=== PATIENT | male | born 1990 | race Hispanic/Latino ===

== ENCOUNTER 2016-11-24 20:51 | Inpatient (IN) | payer OTHER ==
[2016-11-24 21:43] LABS: Hematocrit 43.9 % (35.5-45.6); Hemoglobin 14.6 gm/dl (11.8-15.2); Mean Corpuscular HGB Conc 33 % (32-34); Mean Corpuscular Hemoglobin 30 pg (28-32); Mean Corpuscular Volume 91 fl (84-94); Platelet Count 273 K/mm3 (140-440); Red Blood Count 4.81 M/mm3 (3.65-5.03); Red Cell Distribution Width 14.3 % (13.2-15.2)
[2016-11-24 21:44] LABS: White Blood Count 28.6 K/mm3 (4.5-11.0)
[2016-11-24 22:24] LABS: Albumin/Globulin Ratio 1.9 %; BUN/Creatinine Ratio 8.69; Bilirubin,Total 1.5 mg/dL (0.1-1.2); Calcium 10.3 mg/dL (8.4-10.2); Chloride 96.9 mmol/L (98-107); Potassium 4.8 mmol/L (3.6-5.0); Total Protein 7.6 g/dL (6.3-8.2)
[2016-11-24 22:44] LABS: Anisocytosis 1+; Basophils % (Manual) 0 % (0.0-1.8); Blastocytes % (Manual) 0 %; Diff Status Complete; Eosinophils % (Manual) 0 % (0.0-4.3); Platelet Estimate Consistent w Auto
--- NOTE | 2016-11-24 23:01 | Cat Scan Report ---
FINAL REPORT EXAM: CT HEAD/BRAIN WO CON HISTORY: history of stumbling gait TECHNIQUE: Noncontrast serial axial images from skull base to vertex. PRIORS: None. FINDINGS: There is no mass effect or midline shift. There are no abnormal intra or extra-axial fluid collections. Cortical sulci and lateral ventricles are within normal limits for size and configuration. Basilar cisterns are patent. No acute intracranial hemorrhage is identified. Visualized paranasal sinuses and mastoid air cells are well aerated. No acute osseous abnormality is identified. Dental caries are noted. IMPRESSION: 1. No abnormal mass or acute intracranial hemorrhage is identified. 2. The patient can be further assessed with MRI with diffusion-weighted imaging if indicated. 3. Dental caries are noted.
[2016-11-25] MEDS ORDERED: VALIUM IV ONE (00:23)
[2016-11-25] MEDS ORDERED: LACTATED RINGERS 1,000 ML IV ONE ×2 (00:23→00:24)
[2016-11-25] MEDS ORDERED: SODIUM BICARBONATE IV ONE (00:24)
--- NOTE | 2016-11-25 00:25 | Emergency Department Report ---
ED General Adult HPI - General Chief complaint: Seizure Stated complaint: MH EVAL/DRUG INTAKE/MUSCLE PAIN Time Seen by Provider: 11/25/16 00:19 Source: patient, family, RN notes reviewed Mode of arrival: Ambulatory Limitations: Other (patient is methamphetamine intoxicated. He is a poor historian) - History of Present Illness Initial comments: This is a 26-year-old male. The patient is previously unknown to me. The patient presents to the ER complaining of body aches, nausea, vomiting, denying diarrhea. Patient did admit to being a methamphetamine user. Patient thinks he may have had a seizure but is not certain. He is not homicidal or suicidal. He is not expressing hallucinations. He denies access to guns and firearms. In the ER, the patient is noted to be walking around without difficulty. He mumbles and is rambling. He is found to have acute renal insufficiency, and mild rhabdomyolosis At this point in time, The patient does not require 1013. The patient's physical examination is nonfocal, there are no fevers, there is no neck stiffness, there is no leukocytosis. Given rhabdomyolysis, acute renal insufficiency, the case is presented to the Hospital physician, Dr. Pickens, who accepts the patient to her service. Patient is intoxicated, and is unable to describe exacerbating or relieving factors. He is unable to describe the quality of nature of his symptoms. -: unknown Radiation: other (per hpi) Quality: other (per hpi) Consistency: other (per hpi) Improves with: other (per hpi) Worsens with: other (per hpi) Associated Symptoms: weakness - Related Data Home Medications Medication Instructions Recorded Confirmed Last Taken No Known Home Medications [No 11/25/16 11/25/16 Unknown Reported Home Medications] Allergies Allergy/AdvReac Type Severity Reaction Status Date / Time No Known Allergies Allergy Unverified 11/24/16 21:19 ED Review of Systems ROS: Stated complaint: MH EVAL/DRUG INTAKE/MUSCLE PAIN Other details as noted in HPI ED Past Medical Hx - Past Medical History Previous Medical History?: No - Surgical History Past Surgical History?: No - Social History Smoking Status: Never Smoker Substance Use Type: Alcohol - Medications Home Medications: Home Medications Medication Instructions Recorded Confirmed Last Taken Type No Known Home Medications [No 11/25/16 11/25/16 Unknown History Reported Home Medications] ED Physical Exam - General Limitations: Other (intoxicated) General appearance: alert, in no apparent distress - Head Head exam: Present: atraumatic, normocephalic - Eye Eye exam: Present: normal appearance, EOMI - ENT ENT exam: Present: normal exam, normal orophraynx, mucous membranes moist, normal external ear exam - Neck Neck exam: Present: normal inspection, full ROM. Absent: tenderness, meningismus - Respiratory Respiratory exam: Present: normal lung sounds bilaterally. Absent: respiratory distress, wheezes, rales, rhonchi, stridor, chest wall tenderness, accessory muscle use, decreased breath sounds, prolonged expiratory - Cardiovascular Cardiovascular Exam: Present: regular rate, normal rhythm, normal heart sounds. Absent: bradycardia, tachycardia, irregular rhythm, systolic murmur, diastolic murmur, rubs, gallop - GI/Abdominal GI/Abdominal exam: Present: soft, normal bowel sounds. Absent: distended, tenderness, guarding, rebound, rigid, pulsatile mass - Rectal Rectal exam: Present: deferred - Extremities Exam Extremities exam: Present: normal inspection, normal capillary refill, other ( the compartments are soft. 2+ pulses noted in the bilateral upper and lower extremities). Absent: tenderness, pedal edema, joint swelling, calf tenderness - Back Exam Back exam: Present: normal inspection, full ROM. Absent: tenderness, CVA tenderness (R), CVA tenderness (L), muscle spasm, paraspinal tenderness, vertebral tenderness - Neurological Exam Neurological exam: Present: alert, oriented X3, normal gait, other (Extraocular movements intact. Tongue midline. No facial droop. Facial sensation intact to light touch in the V1, V2, V3 distribution bilaterally. 5 and 5 strength in 4 extremities.. Sensation is intact to light touch in 4 extremities.). Absent : motor sensory deficit - Psychiatric Psychiatric exam: Present: anxious. Absent: homicidal ideation, suicidal ideation - Skin Skin exam: Present: warm, rash ED Course Vital Signs 11/24/16 21:10 Temperature 98.8 F Pulse Rate 97 H Blood Pressure 130/83 O2 Sat by Pulse 97 Oximetry ED Medical Decision Making - Lab Data Result diagrams: 11/24/16 21:24 11/24/16 21:24 Vital Signs 11/24/16 11/25/16 11/25/16 21:10 00:35 02:00 Temperature 98.8 F Pulse Rate 97 H 86 79 Respiratory 18 18 Rate Blood Pressure 130/83 Blood Pressure 111/46 101/55 [Left] O2 Sat by Pulse 97 99 98 Oximetry Lab Results 11/24/16 11/24/16 11/24/16 Range/Units 21:24 21:24 21:24 WBC 28.6 H (4.5-11.0) K/mm3 RBC 4.81 (3.65-5.03) M/mm3 Hgb 14.6 (11.8-15.2) gm/dl Hct 43.9 (35.5-45.6) % MCV 91 (84-94) fl MCH 30 (28-32) pg MCHC 33 (32-34) % RDW 14.3 (13.2-15.2) % Plt Count 273 (140-440) K/mm3 Add Manual Diff Complete Total Counted 200 Seg Neuts % (Manual) 78.0 H (40.0-70.0) % Band Neutrophils % 1.0 % Lymphocytes % (Manual) 13.0 L (13.4-35.0) % Reactive Lymphs % (Man) 0 % Monocytes % (Manual) 8.0 H (0.0-7.3) % Eosinophils % (Manual) 0 (0.0-4.3) % Basophils % (Manual) 0 (0.0-1.8) % Metamyelocytes % 0 % Myelocytes % 0 % Promyelocytes % 0 % Blast Cells % 0 % Nucleated RBC % Not Reportable Seg Neutrophils # Man 22.3 H (1.8-7.7) K/mm3 Band Neutrophils # 0.3 K/mm3 Lymphocytes # (Manual) 3.7 (1.2-5.4) K/mm3 Abs React Lymphs (Man) 0.0 K/mm3 Monocytes # (Manual) 2.3 H (0.0-0.8) K/mm3 Eosinophils # (Manual) 0.0 (0.0-0.4) K/mm3 Basophils # (Manual) 0.0 (0.0-0.1) K/mm3 Metamyelocytes # 0.0 K/mm3 Myelocytes # 0.0 K/mm3 Promyelocytes # 0.0 K/mm3 Blast Cells # 0.0 K/mm3 WBC Morphology Not Reportable Hypersegmented Neuts Not Reportable Hyposegmented Neuts Not Reportable Hypogranular Neuts Not Reportable Smudge Cells Not Reportable Toxic Granulation Not Reportable Toxic Vacuolation Not Reportable Dohle Bodies Not Reportable Pelger-Huet Anomaly Not Reportable Caron Rods Not Reportable Platelet Estimate Consistent w auto Clumped Platelets Not Reportable Plt Clumps, EDTA Not Reportable Large Platelets Not Reportable Giant Platelets Not Reportable Platelet Satelliting Not Reportable Plt Morphology Comment Not Reportable RBC Morphology Not Reportable Dimorphic RBCs Not Reportable Polychromasia Not Reportable Hypochromasia Not Reportable Poikilocytosis Not Reportable Anisocytosis 1+ Microcytosis Not Reportable Macrocytosis Not Reportable Spherocytes Not Reportable Pappenheimer Bodies Not Reportable Sickle Cells Not Reportable Target Cells Not Reportable Tear Drop Cells Not Reportable Ovalocytes Not Reportable Helmet Cells Not Reportable [place] Bodies Not Reportable [place] Rings Not Reportable [place] Cells Not Reportable Bite Cells Not Reportable Crenated Cell Not Reportable Elliptocytes Not Reportable Acanthocytes (Spur) Not Reportable Rouleaux Not Reportable Hemoglobin C Crystals Not Reportable Schistocytes Not Reportable Malaria parasites Not Reportable Rinku Bodies Not Reportable Hem Pathologist Commnt No PT (12.2-14.9) Sec. INR (0.87-1.13) Sodium 140 (137-145) mmol/L Potassium 4.8 (3.6-5.0) mmol/L Chloride 96.9 L (98-107) mmol/L Carbon Dioxide 23 (22-30) mmol/L Anion Gap 25 mmol/L BUN 20 (9-20) mg/dL Creatinine 2.3 H (0.8-1.5) mg/dL Estimated GFR 34 ml/min BUN/Creatinine Ratio 8.69 % Glucose 76 (75-100) mg/dL Lactic Acid (0.7-2.0) mmol/L Calcium 10.3 H (8.4-10.2) mg/dL Total Bilirubin 1.50 H (0.1-1.2) mg/dL AST 39 (5-40) units/L ALT 17 (7-56) units/L Alkaline Phosphatase 71 (35-129) units/L Total Creatine Kinase (55-170) units/L Total Protein 7.6 (6.3-8.2) g/dL Albumin 5.0 (3.9-5) g/dL Albumin/Globulin Ratio 1.9 % Salicylates (2.8-20.0) mg/dL Acetaminophen (10.0-30.0) ug/mL Plasma/Serum Alcohol < 0.01 (0-0.07) gm% 11/24/16 11/24/16 11/24/16 Range/Units 21:24 21:24 21:24 WBC (4.5-11.0) K/mm3 RBC (3.65-5.03) M/mm3 Hgb (11.8-15.2) gm/dl Hct (35.5-45.6) % MCV (84-94) fl MCH (28-32) pg MCHC (32-34) % RDW (13.2-15.2) % Plt Count (140-440) K/mm3 Add Manual Diff Total Counted Seg Neuts % (Manual) (40.0-70.0) % Band Neutrophils % % Lymphocytes % (Manual) (13.4-35.0) % Reactive Lymphs % (Man) % Monocytes % (Manual) (0.0-7.3) % Eosinophils % (Manual) (0.0-4.3) % Basophils % (Manual) (0.0-1.8) % Metamyelocytes % % Myelocytes % % Promyelocytes % % Blast Cells % % Nucleated RBC % Seg Neutrophils # Man (1.8-7.7) K/mm3 Band Neutrophils # K/mm3 Lymphocytes # (Manual) (1.2-5.4) K/mm3 Abs React Lymphs (Man) K/mm3 Monocytes # (Manual) (0.0-0.8) K/mm3 Eosinophils # (Manual) (0.0-0.4) K/mm3 Basophils # (Manual) (0.0-0.1) K/mm3 Metamyelocytes # K/mm3 Myelocytes # K/mm3 Promyelocytes # K/mm3 Blast Cells # K/mm3 WBC Morphology Hypersegmented Neuts Hyposegmented Neuts Hypogranular Neuts Smudge Cells Toxic Granulation Toxic Vacuolation Dohle Bodies Pelger-Huet Anomaly Caron Rods Platelet Estimate Clumped Platelets Plt Clumps, EDTA Large Platelets Giant Platelets Platelet Satelliting Plt Morphology Comment RBC Morphology Dimorphic RBCs Polychromasia Hypochromasia Poikilocytosis Anisocytosis Microcytosis Macrocytosis Spherocytes Pappenheimer Bodies Sickle Cells Target Cells Tear Drop Cells Ovalocytes Helmet Cells Galindo-[place] Bodies [place] Rings [place] Cells Bite Cells Crenated Cell Elliptocytes Acanthocytes (Spur) Rouleaux Hemoglobin C Crystals Schistocytes Malaria parasites Rinku Bodies Hem Pathologist Commnt PT (12.2-14.9) Sec. INR (0.87-1.13) Sodium (137-145) mmol/L Potassium (3.6-5.0) mmol/L Chloride (98-107) mmol/L Carbon Dioxide (22-30) mmol/L Anion Gap mmol/L BUN (9-20) mg/dL Creatinine (0.8-1.5) mg/dL Estimated GFR ml/min BUN/Creatinine Ratio % Glucose (75-100) mg/dL Lactic Acid (0.7-2.0) mmol/L Calcium (8.4-10.2) mg/dL Total Bilirubin (0.1-1.2) mg/dL AST (5-40) units/L ALT (7-56) units/L Alkaline Phosphatase (35-129) units/L Total Creatine Kinase 1341 H (55-170) units/L Total Protein (6.3-8.2) g/dL Albumin (3.9-5) g/dL Albumin/Globulin Ratio % Salicylates < 0.3 L (2.8-20.0) mg/dL Acetaminophen < 15.0 (10.0-30.0) ug/mL Plasma/Serum Alcohol (0-0.07) gm% 11/25/16 11/25/16 Range/Units 00:29 00:29 WBC (4.5-11.0) K/mm3 RBC (3.65-5.03) M/mm3 Hgb (11.8-15.2) gm/dl Hct (35.5-45.6) % MCV (84-94) fl MCH (28-32) pg MCHC (32-34) % RDW (13.2-15.2) % Plt Count (140-440) K/mm3 Add Manual Diff Total Counted Seg Neuts % (Manual) (40.0-70.0) % Band Neutrophils % % Lymphocytes % (Manual) (13.4-35.0) % Reactive Lymphs % (Man) % Monocytes % (Manual) (0.0-7.3) % Eosinophils % (Manual) (0.0-4.3) % Basophils % (Manual) (0.0-1.8) % Metamyelocytes % % Myelocytes % % Promyelocytes % % Blast Cells % % Nucleated RBC % Seg Neutrophils # Man (1.8-7.7) K/mm3 Band Neutrophils # K/mm3 Lymphocytes # (Manual) (1.2-5.4) K/mm3 Abs React Lymphs (Man) K/mm3 Monocytes # (Manual) (0.0-0.8) K/mm3 Eosinophils # (Manual) (0.0-0.4) K/mm3 Basophils # (Manual) (0.0-0.1) K/mm3 Metamyelocytes # K/mm3 Myelocytes # K/mm3 Promyelocytes # K/mm3 Blast Cells # K/mm3 WBC Morphology Hypersegmented Neuts Hyposegmented Neuts Hypogranular Neuts Smudge Cells Toxic Granulation Toxic Vacuolation Dohle Bodies Pelger-Huet Anomaly Caron Rods Platelet Estimate Clumped Platelets Plt Clumps, EDTA Large Platelets Giant Platelets Platelet Satelliting Plt Morphology Comment RBC Morphology Dimorphic RBCs Polychromasia Hypochromasia Poikilocytosis Anisocytosis Microcytosis Macrocytosis Spherocytes Pappenheimer Bodies Sickle Cells Target Cells Tear Drop Cells Ovalocytes Helmet Cells Galindo-[place] Bodies [place] Rings Myles Cells Bite Cells Crenated Cell Elliptocytes Acanthocytes (Spur) Rouleaux Hemoglobin C Crystals Schistocytes Malaria parasites Rinku Bodies Hem Pathologist Commnt PT 14.5 (12.2-14.9) Sec. INR 1.14 H (0.87-1.13) Sodium (137-145) mmol/L Potassium (3.6-5.0) mmol/L Chloride (98-107) mmol/L Carbon Dioxide (22-30) mmol/L Anion Gap mmol/L BUN (9-20) mg/dL Creatinine (0.8-1.5) mg/dL Estimated GFR ml/min BUN/Creatinine Ratio % Glucose (75-100) mg/dL Lactic Acid 1.00 (0.7-2.0) mmol/L Calcium (8.4-10.2) mg/dL Total Bilirubin (0.1-1.2) mg/dL AST (5-40) units/L ALT (7-56) units/L Alkaline Phosphatase (35-129) units/L Total Creatine Kinase (55-170) units/L Total Protein (6.3-8.2) g/dL Albumin (3.9-5) g/dL Albumin/Globulin Ratio % Salicylates (2.8-20.0) mg/dL Acetaminophen (10.0-30.0) ug/mL Plasma/Serum Alcohol (0-0.07) gm% - EKG Data -: EKG Interpreted by Pr EKG shows normal: sinus rhythm, axis, intervals, QRS complexes, ST-T waves - EKG Data When compared to previous EKG there are: previous EKG unavailable - Radiology Data Radiology results: report reviewed, image reviewed Noncontrast CT scan of the brain is negative - Medical Decision Making Differential diagnosis: Dehydration, vasomotor nephropathy, acute renal insufficiency, methamphetamine toxicity Assessment and plan: 26-year-old male who is clinically intoxicated, with leukocytosis, however no fever. There is no neck pain or neck stiffness. There are no meningeal signs. Patient's mentation is most likely toxic metabolic. He does not require 1013 at this time. He will be given Valium for symptom control, and 2 L of lactated Ringer's. He requires admission for his electrolyte/renal derangement. Critical care attestation.: If time is entered above; I have spent that time in minutes in the direct care of this critically ill patient, excluding procedure time. ED Disposition Clinical Impression: Renal failure, Rhabdomyolysis, Methamphetamine abuse Disposition: OP ADMITTED IP TO THIS HOSP Is pt being admited?: Yes Condition: Good
[2016-11-25] MEDS ORDERED: ZOFRAN IV PRN (00:59)
[2016-11-25] MEDS ORDERED: DULCOLAX PR PRN (00:59)
[2016-11-25] MEDS ORDERED: TYLENOL PO PRN (00:59)
[2016-11-25] MEDS ORDERED: NACL 0.9% 1000 ML 1,000 ML IV SCH (01:00)
--- NOTE | 2016-11-25 01:02 | History and Physical Report ---
History of Present Illness Date of examination: 11/25/16 History of present illness: 26-year-old man with a history of methamphetamine abuse came to the emergency room with complaints of muscle cramps. Patient was agitated in the emergency room, and was given IV Valium, he is now sedated, review of system is unobtainable PAST SURGICAL HISTORY: Unknown SOCIAL HISTORY: Methamphetamine abuse, unknown alcohol, tobacco FAMILY HISTORY: Unknown Medications and Allergies Allergies Allergy/AdvReac Type Severity Reaction Status Date / Time No Known Allergies Allergy Unverified 11/24/16 21:19 Home Medications Medication Instructions Recorded Confirmed Last Taken Type No Known Home Medications [No 11/25/16 11/25/16 Unknown History Reported Home Medications] Active Meds: Active Medications Lactated Ringer's (Lactated Ringers) 1,000 mls @ 999 mls/hr IV BOLUS ONE Stop: 11/25/16 01:23 Last Admin: 11/25/16 00:45 Dose: 999 mls/hr Lactated Ringer's (Lactated Ringers) 1,000 mls @ 999 mls/hr IV BOLUS ONE Stop: 11/25/16 01:24 Last Admin: 11/25/16 00:45 Dose: 999 mls/hr Exam - Physical Exam Narrative exam: Gen. appearance: Patient lying in bed, no apparent distress HEENT: Normocephalic, atraumatic, pupils equally round and reactive to light, unable to do extraocular movement, and no sclericterus,. No JVD or thyromegaly or nodule,neck supple, no carotid bruit ,mucous membranes moist, no exudate or erythema Heart: S1, S2, regular rate and rhythm Lungs: Clear to auscultation bilaterally, breathing comfortable Abdomen: Positive bowel sounds, soft, nondistended, no organomegaly Extremity: No edema, cyanosis, clubbing Skin: No rash, nodules, warm, dry Neuro: Sedated - Constitutional Vitals: Temp Pulse Resp BP Pulse Ox 98.8 F 97 H 130/83 97 11/24/16 21:10 11/24/16 21:10 11/24/16 21:10 11/24/16 21:10 Results - Labs CBC & Chem 7: 11/24/16 21:24 11/24/16 21:24 Labs: Abnormal lab results 11/24/16 11/24/16 11/24/16 Range/Units 21:24 21:24 21:24 WBC 28.6 H (4.5-11.0) K/mm3 Seg Neuts % (Manual) 78.0 H (40.0-70.0) % Lymphocytes % (Manual) 13.0 L (13.4-35.0) % Monocytes % (Manual) 8.0 H (0.0-7.3) % Seg Neutrophils # Man 22.3 H (1.8-7.7) K/mm3 Monocytes # (Manual) 2.3 H (0.0-0.8) K/mm3 Chloride 96.9 L (98-107) mmol/L Creatinine 2.3 H (0.8-1.5) mg/dL Calcium 10.3 H (8.4-10.2) mg/dL Total Bilirubin 1.50 H (0.1-1.2) mg/dL Total Creatine Kinase 1341 H (55-170) units/L Salicylates (2.8-20.0) mg/dL 11/24/16 Range/Units 21:24 WBC (4.5-11.0) K/mm3 Seg Neuts % (Manual) (40.0-70.0) % Lymphocytes % (Manual) (13.4-35.0) % Monocytes % (Manual) (0.0-7.3) % Seg Neutrophils # Man (1.8-7.7) K/mm3 Monocytes # (Manual) (0.0-0.8) K/mm3 Chloride (98-107) mmol/L Creatinine (0.8-1.5) mg/dL Calcium (8.4-10.2) mg/dL Total Bilirubin (0.1-1.2) mg/dL Total Creatine Kinase (55-170) units/L Salicylates < 0.3 L (2.8-20.0) mg/dL - Imaging and Cardiology CT Scan - head: report reviewed Assessment and Plan Acute renal failure SIRS Rhabdomyolysis Substance abuse Start IV fluids, obtain ultrasound of the kidneys Start empiric IV Zosyn, follow blood cultures Start DVT prophylaxis
[2016-11-25 01:12] LABS: INR 1.14 (0.87-1.13)
--- NOTE | 2016-11-25 03:50 | Ultrasound Report ---
FINAL REPORT EXAM: US RENAL BILAT HISTORY: ARF COMPARISON: None available. TECHNIQUE: Several real-time grayscale and color Doppler images were obtained. FINDINGS: Right kidney measures 9.8 x 5.3 x 4.9 centimeters. Cortex measures 1.7 centimeters. Left kidney measures 10.5 x 5.3 x 5.5 centimeters. Cortex measures 1.9 centimeters. There is vascular flow to the bilateral kidneys. No gross focal renal lesion or hydronephrosis. Punctate nonobstructive renal calculi could be obscured by renal sinus fat. Visualize urinary bladder is grossly unremarkable. IMPRESSION: No gross focal renal lesion or hydronephrosis. Visualized urinary bladder is grossly unremarkable.
[2016-11-25] MEDS ORDERED: ZOSYN/NS 4.5GM/100ML 4.5 GM/100 ML VIAL IV SCH (04:10)
--- NOTE | 2016-11-25 04:15 | Admit Criteria Form ---
Admission Criteria Documentation: MUSCULOSKELETAL DISEASE GRG Clinical Indications for Admission to Inpatient Care (Place 'X' for any and all applicable criteria): Hospital admission is needed for appropriate care of the patient because of 1 or more of the following: [ ]I. Fracture, dislocation, or other musculoskeletal injury requiring inpatient care(medical) as indicated by 1 or more of the following(4)(5)(6)(7) [ ]a) Vertebral fracture requiring observation for instability or neurologic compromise (8) [ ]b) Compartment syndrome (proven or cannot be ruled out during observation level of care) (9) [ ]c) Limb-threatening injury [ ]d) Major injury requiring inpatient stabilization such as traction initiation or external fixation before internal fixation or closure of complex or open fracture [ ]e) Major injury requiring inpatient treatment after emergency or observation level care (as appropriate) [ ]f) Severe pain requiring acute inpatient management [ ]g) Injury with suspicion of abuse or neglect (eg., child, dependent elderly) [ ]II. Newly diagnosed or suspected bone, joint, or orthopedic device infection (e.g., osteomyelitis, septic arthritis) needing 1 or more of the following(1)(2)(3) [ ]a) IV antibiotics that cannot be initiated in other than inpatient setting (e.g., patient too unstable or home infusion not available) [ ]b) Device removal or replacement [ ]c) Bone or soft tissue debridement [ ]d) Joint drainage (drain placement or repetitive aspirations) [ ]III. Severe rheumatologic disease (e.g., systemic lupus erythematosus, rheumatoid arthritis) with complications or comorbidities (Also use Optimal Recovery Care Criteria or General Recovery Criteria as appropriate on the basis of predominant condition), including 1 or more of the following( 10)(11)(12)(13) [ ]a) Severe infection (e.g., MANAGER [employer]ING infection, sepsis) (14) [ ]b) Respiratory complications, including 1 or more of the following : [ ]i) Pleural effusion with respiratory compromise [ ]ii) Pulmonary hypertension with congestive failure [ ]iii) Respiratory failure [ ]iv) Pulmonary hemorrhage (15) [ ]c) Hematologic disease, including 1 or more of the following: [ ]i) Coagulopathy with bleeding [ ]ii) Thrombosis with hypercoagulable state [ ]iii) Thrombotic thrombocytopenic purpura [ ]d) Cerebritis with seizures, psychosis, or other severe abnormalities [ ]e) Vertebral destruction with monitoring needed for cervical myelopathy& possible respiratory compromise [ ]f) Exacerbation that requires inpatient treatment (e.g., intravenous immunosuppression) (16) [ ]g) Acute renal failure [ ]h) Cerebritis with seizures, psychosis, Altered mental status, or other neurologic abnormalities [ ]i) Pericardial effusion with tamponade [ ]j) Vertebral destruction, with monitoring needed for cervical myelopathy and possible respiratory compromise [ ]IV. Severe vasculitis with complications or comorbidities (Also use Optimal Recovery Care Criteria General Recovery Criteria as appropriate on the basis of predominant condition), including 1 or more of the following(11)(12)(17)(18)(19)(20) [ ]a) Exacerbation that requires inpatient treatment (e.g., intravenous immunosuppression) (19)(21) [ ]b) Pulmonary hemorrhage (15) [ ]c) MANAGER [employer]ING vasculitis with seizures, psychosis, Altered mental status that is severe or persistent, or other severe abnormalities (22) [ ]d) Cerebral infarction [ ]e) Gastrointestinal ischemia [ ]f) Gangrene or threatened amputation [ ]g) Renal failure (16) [ ]h) Other significant complications of vasculitis ( eg., tissue or organ ischemia, organ dysfunction ) [ ]V. Severe myopathy as indicated by 1 or more of the following (28)(29) [ ]a) New onset of airway compromise or inability to swallow [ ]b) Respiratory deterioration with observation needed for impending respiratory failure [ ]c) Exacerbation that requires inpatient treatment (e.g., intravenous immunosuppression) [ ]. Severe crystal gout (arthropathy) indicated by 1 or more of the following (23)(24) [ ]a) Severe pain requiring acute inpatient management [ ]b) Exacerbation that requires inpatient treatment (e.g., intravenous treatment) [X ]VII.Rhabdomyolysis and 1 or more of the following (25)(26)(27) [X ]a) Acute renal failure [ ]b) Need for intravenous hydration after emergency or observation level care (as appropriate) [ ]c) Inability to maintain oral hydration [ ]d) Change in mental status [ ]e) Electrolyte abnormality that remains after emergency or observation level care (as appropriate) [ ]VIII Post amputation complication, as indicated by ANY ONE of the following [ ]a) Infection [ ]b) Dehiscence [ ]c) Myodesis failure [ ]IX. Severe pain requiring acute inpatient management due to musculoskeletal condition [ ]X. Musculoskeletal Disease and ALL of the following: [ ]a) Symptom or finding for which emergency and observation care have failed or are not considered appropriate (Use General Criteria: Observation Care as appropriate) [ ]b) Presence of ANY ONE of the following [ ]i) A General Admission Criteria [ ]ii) A Pediatric General Admission Criteria The original [facility] [employer] content created by [facility] [employer] has been revised. The portions of the content which have been revised are identified through the use of italic text or in bold, and [facility] has neither reviewed nor approved the modified material. All other unmodified content is copyright [facility] [employer]. Please see references footnoted in the original [facility] edition 2016 Admission Criteria Met: Yes
[2016-11-25] MEDS: ZOSYN/NS 2.25 GM/50ML 2.25 GM/50 ML BAG IV SCH ×4 (06:49→22:51)
[2016-11-25] MEDS: LOVENOX SUB-Q SCH (11:45)
--- NOTE | 2016-11-25 17:57 | Progress Note ---
Assessment and Plan Assessment and plan: 26-year-old male presents with acute renal failure rhabdomyolysis and leukocytosis secondary to methamphetamine abuse - Patient Problems (1) Methamphetamine abuse Current Visit: Yes Status: Acute Plan to address problem: Patient has been educated and understands the risk and dangers of methamphetamine use including . Patient informed to join NA (2) Renal failure Current Visit: Yes Status: Acute Qualifiers: Renal failure chronicity: R Acute renal failure type: A Chronic kidney disease stage: C Plan to address problem: Acute renal failure secondary to methamphetamine abuse and rhabdo. Aggressive hydration should be ready for discharge tomorrow. We'll recheck renal function failed. She just got here today. (3) Rhabdomyolysis Current Visit: Yes Status: Acute Qualifiers: Rhabdomyolysis type: R Encounter type: E Plan to address problem: Rhabdo secondary to methamphetamine use aggressive IV hydration recheck CPK in the a.m. Patient appears to be stable no evidence of alcohol withdrawal. Should be stable for discharge in a.m. rhabdo resolved. History Interval history: Patient remains encephalopathic somewhat lethargic will awaken momentarily but goes back to sleep. Patient sleeping very hard. Did speak to patient about the reason he has elevated white count the reason he has rhabdomyolysis the reason he has acute renal failure is because of methamphetamine use. Hospitalist Physical - Constitutional Vitals: Temp Pulse Resp BP Pulse Ox 97.9 F 73 18 116/57 98 11/25/16 12:00 11/25/16 12:00 11/25/16 12:00 11/25/16 12:00 11/25/16 12:00 General appearance: Present: no acute distress - EENT Eyes: Present: PERRL, EOM intact ENT: hearing intact, clear oral mucosa, dentition normal - Neck Neck: Present: supple, normal ROM - Respiratory Respiratory effort: normal Respiratory: bilateral: CTA - Cardiovascular Rhythm: regular Heart Sounds: Present: S1 & S2 - Extremities Extremities: pulses intact Extremity abnormal: edema, cyanosis Peripheral Pulses: within normal limits - Abdominal General gastrointestinal: soft, non-tender, non-distended - Psychiatric Psychiatric: other - Neurologic Neurologic: CNII-XII intact, no focal deficits, moves all extremities (drowsy) Results - Labs CBC & Chem 7: 11/24/16 21:24 11/24/16 21:24 Labs: Laboratory Last Values WBC 28.6 K/mm3 (4.5-11.0) H 11/24/16 21:24 RBC 4.81 M/mm3 (3.65-5.03) 11/24/16 21:24 Hgb 14.6 gm/dl (11.8-15.2) 11/24/16 21:24 Hct 43.9 % (35.5-45.6) 11/24/16 21:24 MCV 91 fl (84-94) 11/24/16 21:24 MCH 30 pg (28-32) 11/24/16 21:24 MCHC 33 % (32-34) 11/24/16 21:24 RDW 14.3 % (13.2-15.2) 11/24/16 21:24 Plt Count 273 K/mm3 (140-440) 11/24/16 21:24 Add Manual Diff Complete 11/24/16 21:24 Total Counted 200 11/24/16 21:24 Seg Neuts % (Manual) 78.0 % (40.0-70.0) H 11/24/16 21:24 Band Neutrophils % 1.0 % 11/24/16 21:24 Lymphocytes % (Manual) 13.0 % (13.4-35.0) L 11/24/16 21:24 Reactive Lymphs % (Man) 0 % 11/24/16 21:24 Monocytes % (Manual) 8.0 % (0.0-7.3) H 11/24/16 21:24 Eosinophils % (Manual) 0 % (0.0-4.3) 11/24/16 21:24 Basophils % (Manual) 0 % (0.0-1.8) 11/24/16 21:24 Metamyelocytes % 0 % 11/24/16 21:24 Myelocytes % 0 % 11/24/16 21:24 Promyelocytes % 0 % 11/24/16 21:24 Blast Cells % 0 % 11/24/16 21:24 Nucleated RBC % Not Reportable 11/24/16 21:24 Seg Neutrophils # Man 22.3 K/mm3 (1.8-7.7) H 11/24/16 21:24 Band Neutrophils # 0.3 K/mm3 11/24/16 21:24 Lymphocytes # (Manual) 3.7 K/mm3 (1.2-5.4) 11/24/16 21:24 Abs React Lymphs (Man) 0.0 K/mm3 11/24/16 21:24 Monocytes # (Manual) 2.3 K/mm3 (0.0-0.8) H 11/24/16 21:24 Eosinophils # (Manual) 0.0 K/mm3 (0.0-0.4) 11/24/16 21:24 Basophils # (Manual) 0.0 K/mm3 (0.0-0.1) 11/24/16 21:24 Metamyelocytes # 0.0 K/mm3 11/24/16 21:24 Myelocytes # 0.0 K/mm3 11/24/16 21:24 Promyelocytes # 0.0 K/mm3 11/24/16 21:24 Blast Cells # 0.0 K/mm3 11/24/16 21:24 WBC Morphology Not Reportable 11/24/16 21:24 Hypersegmented Neuts Not Reportable 11/24/16 21:24 Hyposegmented Neuts Not Reportable 11/24/16 21:24 Hypogranular Neuts Not Reportable 11/24/16 21:24 Smudge Cells Not Reportable 11/24/16 21:24 Toxic Granulation Not Reportable 11/24/16 21:24 Toxic Vacuolation Not Reportable 11/24/16 21:24 Dohle Bodies Not Reportable 11/24/16 21:24 Pelger-Huet Anomaly Not Reportable 11/24/16 21:24 Caron Rods Not Reportable 11/24/16 21:24 Platelet Estimate Consistent w auto 11/24/16 21:24 Clumped Platelets Not Reportable 11/24/16 21:24 Plt Clumps, EDTA Not Reportable 11/24/16 21:24 Large Platelets Not Reportable 11/24/16 21:24 Giant Platelets Not Reportable 11/24/16 21:24 Platelet Satelliting Not Reportable 11/24/16 21:24 Plt Morphology Comment Not Reportable 11/24/16 21:24 RBC Morphology Not Reportable 11/24/16 21:24 Dimorphic RBCs Not Reportable 11/24/16 21:24 Polychromasia Not Reportable 11/24/16 21:24 Hypochromasia Not Reportable 11/24/16 21:24 Poikilocytosis Not Reportable 11/24/16 21:24 Anisocytosis 1+ 11/24/16 21:24 Microcytosis Not Reportable 11/24/16 21:24 Macrocytosis Not Reportable 11/24/16 21:24 Spherocytes Not Reportable 11/24/16 21:24 Pappenheimer Bodies Not Reportable 11/24/16 21:24 Sickle Cells Not Reportable 11/24/16 21:24 Target Cells Not Reportable 11/24/16 21:24 Tear Drop Cells Not Reportable 11/24/16 21:24 Ovalocytes Not Reportable 11/24/16 21:24 Helmet Cells Not Reportable 11/24/16 21:24 Galindo-Jagual Bodies Not Reportable 11/24/16 21:24 [place] Rings Not Reportable 11/24/16 21:24 Myles Cells Not Reportable 11/24/16 21:24 Bite Cells Not Reportable 11/24/16 21:24 Crenated Cell Not Reportable 11/24/16 21:24 Elliptocytes Not Reportable 11/24/16 21:24 Acanthocytes (Spur) Not Reportable 11/24/16 21:24 Rouleaux Not Reportable 11/24/16 21:24 Hemoglobin C Crystals Not Reportable 11/24/16 21:24 Schistocytes Not Reportable 11/24/16 21:24 Malaria parasites Not Reportable 11/24/16 21:24 Rinku Bodies Not Reportable 11/24/16 21:24 Hem Pathologist Commnt No 11/24/16 21:24 PT 14.5 Sec. (12.2-14.9) 11/25/16 00:29 INR 1.14 (0.87-1.13) H 11/25/16 00:29 Sodium 140 mmol/L (137-145) 11/24/16 21:24 Potassium 4.8 mmol/L (3.6-5.0) 11/24/16 21:24 Chloride 96.9 mmol/L (98-107) L 11/24/16 21:24 Carbon Dioxide 23 mmol/L (22-30) 11/24/16 21:24 Anion Gap 25 mmol/L 11/24/16 21:24 BUN 20 mg/dL (9-20) 11/24/16 21:24 Creatinine 2.3 mg/dL (0.8-1.5) H 11/24/16 21:24 Estimated GFR 34 ml/min 11/24/16 21:24 BUN/Creatinine Ratio 8.69 % 11/24/16 21:24 Glucose 76 mg/dL (75-100) 11/24/16 21:24 Lactic Acid 1.00 mmol/L (0.7-2.0) 11/25/16 00:29 Calcium 10.3 mg/dL (8.4-10.2) H 11/24/16 21:24 Total Bilirubin 1.50 mg/dL (0.1-1.2) H 11/24/16 21:24 AST 39 units/L (5-40) 11/24/16 21:24 ALT 17 units/L (7-56) 11/24/16 21:24 Alkaline Phosphatase 71 units/L (35-129) 11/24/16 21:24 Total Creatine Kinase 1341 units/L (55-170) H 11/24/16 21:24 Total Protein 7.6 g/dL (6.3-8.2) 11/24/16 21:24 Albumin 5.0 g/dL (3.9-5) 11/24/16 21:24 Albumin/Globulin Ratio 1.9 % 11/24/16 21:24 Salicylates < 0.3 mg/dL (2.8-20.0) L 11/24/16 21:24 Acetaminophen < 15.0 ug/mL (10.0-30.0) 11/24/16 21:24 Plasma/Serum Alcohol < 0.01 gm% (0-0.07) 11/24/16 21:24
[2016-11-26] MEDS: ZOSYN/NS 2.25 GM/50ML 2.25 GM/50 ML BAG IV SCH (03:57)
[2016-11-26 07:01] LABS: Basophils % (Auto) 0.7 % (0.0-1.8); Eosinophils % (Auto) 5.1 % (0.0-4.3); Hematocrit 38.1 % (35.5-45.6); Hemoglobin 12.6 gm/dl (11.8-15.2); Mean Corpuscular HGB Conc 33 % (32-34); Mean Corpuscular Hemoglobin 30 pg (28-32); Mean Corpuscular Volume 92 fl (84-94); Platelet Count 204 K/mm3 (140-440); Red Blood Count 4.15 M/mm3 (3.65-5.03); Red Cell Distribution Width 14.7 % (13.2-15.2); White Blood Count 7.6 K/mm3 (4.5-11.0)
[2016-11-26 07:32] LABS: Anion Gap 14 mmol/L; BUN/Creatinine Ratio 21.25; Blood Urea Nitrogen 17 mg/dL (9-20); Calcium 8.2 mg/dL (8.4-10.2); Carbon Dioxide 24 mmol/L (22-30); Chloride 109.2 mmol/L (98-107); Creatine Kinase 1062 units/L (55-170); Glucose 86 mg/dL (75-100); Potassium 5.1 mmol/L (3.6-5.0); Sodium 142 mmol/L (137-145)
[2016-11-26] MEDS ORDERED: D50W (25GM) IV ONE (08:08)
[2016-11-26] MEDS: LOVENOX SUB-Q SCH (09:32)
[2016-11-26 10:59] VITALS: BP 130/79
[2016-11-26] MEDS ORDERED: ZOSYN/NS 4.5GM/100ML 4.5 GM/100 ML VIAL IV SCH (14:00)
[2016-11-26 17:43] LABS: Anion Gap 14 mmol/L; BUN/Creatinine Ratio 18.57; Blood Urea Nitrogen 13 mg/dL (9-20); Calcium 8.8 mg/dL (8.4-10.2); Carbon Dioxide 27 mmol/L (22-30); Creatine Kinase 852 units/L (55-170); Glucose 106 mg/dL (75-100); Potassium 4.4 mmol/L (3.6-5.0); Sodium 139 mmol/L (137-145)
--- NOTE | 2016-11-26 18:07 | Discharge Summary ---
Providers - Providers Date of Admission: 11/25/16 00:59 Date of discharge: 11/26/16 Attending physician: PADMINI SOUZA Primary care physician: MEGGAN HAN MD Hospitalization Condition: Good Disposition: DC-01 TO HOME OR SELFCARE - Discharge Diagnoses (1) Acute kidney injury Status: Acute (2) Methamphetamine abuse Status: Acute (3) Rhabdomyolysis Status: Acute Qualifiers: Rhabdomyolysis type: R Encounter type: E Core Measure Documentation - Palliative Care Palliative Care/ Comfort Measures: Not Applicable - Core Measures Any of the following diagnoses?: none Exam - Constitutional Vitals: Temp Pulse Resp BP Pulse Ox 98.2 F 83 18 130/79 99 11/26/16 10:58 11/26/16 10:58 11/26/16 10:58 11/26/16 10:58 11/26/16 10:58 Plan Activity: no restrictions Diet: regular Additional Instructions: 1.Follow up with PCP or [facility] in 1 week. 2.Avoid Methamphetamines and other illicit drugs Follow up with: PRIMARY CAREMD [Primary Care Provider] - 3-5 Days
[2016-11-27] MEDS ORDERED: LOVENOX SUB-Q SCH (10:00)
== END 2016-11-26 19:00 | disposition home or self-care (01) | DRG 682 ==
LOC: EEVIPCON 20:51 → ED 20:51 → 4A 11-25 00:59
PROVIDERS: ADMIT Internal Medicine; ATTEND Internal Medicine
DX: N17.9 Acute kidney failure, unspecified (principal); G93.40 Encephalopathy, unspecified; R65.10 Systemic inflammatory response syndrome (SIRS) of non-infectious origin without acute organ dysfunction; M62.82 Rhabdomyolysis; F15.10 Other stimulant abuse, uncomplicated; D72.829 Elevated white blood cell count, unspecified
CPT/HCPCS: 36415; 70450; 76770; 80048; 80053; 80320; 82140; 82550; 85007; 85025; 85610; 93005; 93010; 96361; 96372; 96375; 99285; G0480; J1650; J2543; J3360; J7030; J7120